=== PATIENT | female | born 1970 | race Caucasian/White ===

== ENCOUNTER 2023-06-20 08:22 | Emergency (ER) | payer OTHER ==
[2023-06-20] MEDS: Aspirin 81 MG Tab.Chew PO ONE (08:58)
[2023-06-20] MEDS: Nitroglycerin 0.4 MG Tab.SL SL ONE ×2 (08:58→09:14)
[2023-06-20 09:08] LABS: BASOPHILS PERCENT AUTO 0.6 % (0.2-1.5); EOSINOPHILS ABSOLUTE AUTO 0.1 x10-3/uL (0.0-0.8); EOSINOPHILS PERCENT AUTO 1.4 % (0.6-8.1); LYMPHOCYTES ABSOLUTE AUTO 2.5 x10-3/uL (1.0-4.4); LYMPHOCYTES PERCENT AUTO 37.2 % (18.4-52.1); MEAN CORPUSCULAR HEMOGLOBIN 30.1 pg (23.9-33.9); MEAN CORPUSCULAR HGB CONC 33.5 g/dL (31.9-34.8); MEAN PLATELET VOLUME 7.2 fL (7.1-12.4); MONOCYTES ABSOLUTE AUTO 0.4 x10-3/uL (0.3-1.0); MONOCYTES PERCENT AUTO 5.9 % (4.4-15.7); NEUTROPHILS ABSOLUTE AUTO 3.7 x10-3/uL (1.5-6.3); NEUTROPHILS PERCENT AUTO 54.9 % (30.8-76.2); PLATELET COUNT,PLT 284 x10(3)uL (151-488); RED BLOOD CELL COUNT 4.33 x10(6)uL (3.60-5.20); RED CELL DISTRIBUTION WIDTH 12.8 % (12.3-16.5); WHITE BLOOD CELL COUNT,WBC 6.7 x10-3/uL (3.0-10.3)
[2023-06-20 09:15] LABS: BLOOD UREA NITROGEN,BUN 17 mg/dL (7-18); BUN/CREATININE RATIO 28.3 (9-20); CALCIUM 9.4 mg/dL (8.6-10.2); CARBON DIOXIDE,CO2 27 mmol/L (21-32); CHLORIDE,CL 106 mmol/L (100-110); CREATININE 0.6 mg/dL (0.55-1.02); EST CRCL DRUG DOSING (CG) 103.84 mL/min; ESTIMATED GFR 109 mL/min (>60); GLUCOSE RANDOM 100 mg/dL (80-116); SODIUM,NA 142 mmol/L (135-145)
[2023-06-20 09:21] LABS: A/G RATIO 1.1; ALANINE AMINOTRANSFERASE,ALT 28 U/L (12-36); ALBUMIN 3.3 g/dL (3.5-5.2); ALKALINE PHOSPHATASE 57 IU/L (56-112); ASPARTATE AMNIOTRANSFERASE,AST 13 IU/L (5-25); BILIRUBIN TOTAL 0.4 mg/dL (0.1-1.3); PROTEIN TOTAL,TP 6.4 g/dL (6.0-8.0)
[2023-06-20 09:26] LABS: TROPONIN I 17.5 pg/mL (4.0-60.3)
[2023-06-20 09:32] LABS: D-DIMER QUANTITATIVE 0.35 mg/LFEU (0.0-0.59); INR 0.96 (1.00-1.24); PTT,PARTIAL THROMBOPLSTIN TIME 23.8 SECONDS (24.4-33.2)
[2023-06-20] MEDS: Ketorolac 30 MG/ML SDV IVPUSH ONE (09:42)
== END 2023-06-20 10:17 | disposition home or self-care (01) ==
LOC: FB.ED 08:22
DX: M94.0 Chondrocostal junction syndrome [Tietze] (principal); Z79.899 Other long term (current) drug therapy
CPT/HCPCS: 36415; 71045; 80053; 83880; 84484; 85025; 85379; 85610; 85730; 93005; 93010; 96374; 99283; 99285-25; A9270-GY; J1885

== ENCOUNTER 2023-10-26 17:49 | Emergency (ER) | payer OTHER ==
[2023-10-26] MEDS ORDERED: Lidocaine 2% 5 ML SDV INFILT ONE (17:50)
== END 2023-10-26 18:48 | disposition home or self-care (01) ==
LOC: FB.ED 17:49
DX: S61.412A Laceration without foreign body of left hand, initial encounter (principal); Z79.899 Other long term (current) drug therapy; W26.0XXA Contact with knife, initial encounter; Y92.009 Unspecified place in unspecified non-institutional (private) residence as the place of occurrence of the external cause
CPT/HCPCS: 12001; 12002; 99282; 99283